=== PATIENT | male | born 1970 | race Two or more races ===

== ENCOUNTER 2017-07-26 08:44 | Emergency (ER) | payer OTHER ==
[2017-07-26 08:49] VITALS: BP 151/82; PULSE 68; RESP 17; TEMP 97.7; O2SAT 97
[2017-07-26] MEDS ORDERED: FLUORESCEIN SODIUM 1 MG STRIP OP ONE (08:58)
[2017-07-26] MEDS ORDERED: PROPARACAINE 0.5% 15 ML OPHT DROP ONE (08:59)
[2017-07-26] MEDS ORDERED: ERYTHROMYCIN 0.5% 1 GM OPHT.OINT LEFTEYE ONE (09:20)
--- NOTE | 2017-07-26 09:23 | EDPHY ---
H & P Stated Complaint: irritation l eye /noticed when he woke up Time Seen by Provider: 07/26/17 08:56 HPI/ROS: Chief Complaint: Left eye irritation HPI: 47-year-old male woke with irritation in his left eye this morning. Patient states he has been rubbing it. No blurry vision. Does wear glasses but no contacts. Denies any trauma or recent injuries. He does not work construction and has not been doing any grinding. No discharge. No headache. He is up-to-date on his tetanus. ROS: 10 point Review of Systems is negative except as noted in the HPI. Family History: non-contributory Physical Exam: General: Awake, alert, no acute distress Eye Exam Visual Acuity: Intact OU EOM: Intact OU Visual Quarles: Intact OU Pupil: Equal, round and reactive to light and accomodation OU External: Lids, lashes and margins normal OU, lids everted with no foreign body noted Slit Lamp; Normal Conjuctiva, Iris normal, Cornea normal, Anterior chambers clear without cells or flare, no hyphema, normal angles Fluorosceine exam: He has a large uptake in the 11 o'clock position over the iris consistent with corneal abrasion Skin: No rash - Personal History Current Tetanus/Diphtheria Vaccine: Yes - Medical/Surgical History Hx Asthma: No Hx Chronic Respiratory Disease: No Hx Diabetes: No Hx Cardiac Disease: No Hx Renal Disease: No Hx Cirrhosis: No Hx Alcoholism: No Hx HIV/AIDS: No Hx Splenectomy or Spleen Trauma: No Other PMH: gerd - Social History Smoking Status: Never smoked Constitutional: Initial Vital Signs Temperature (C) 36.5 C 07/26/17 08:47 Heart Rate 68 07/26/17 08:47 Respiratory Rate 17 07/26/17 08:47 Blood Pressure 151/82 H 07/26/17 08:47 O2 Sat (%) 97 07/26/17 08:47 O2 Delivery Mode Room Air Allergies/Adverse Reactions: No Known Allergies Allergy (Unverified 07/26/17 08:46) Home Medications: Medication Instructions Recorded Protonix 07/26/17 [id number] 07/26/17 Medical Decision Making ED Course/Re-evaluation: Patient has a corneal abrasion. Will start him on erythromycin eye ointment. Will also send him home with a 0.05% proparacaine solution for as an anesthetic. He will follow up with primary care physician. If he is still having eye pain or irritation in 2 days he also follow up with Ophthalmology. Departure - Departure Disposition: Home, Routine, Self-Care Clinical Impression: Corneal abrasion Condition: Good Instructions: Corneal Abrasion (ED) Additional Instructions: Apply the erythromycin ointment every 4 hr while awake for the next 2 days. You may apply the proparacaine, 0.05% drops, 1-2 drops every 30 min as needed for discomfort. Only do this for the next 24 hr, then discarded. You may also take ibuprofen as needed for discomfort. If in 2 days for still having eye pain or irritation follow up with Ophthalmology, otherwise follow up with your primary care physician as needed. Return to the emergency department for increasing severe eye pain, blurry vision , fevers, or any other concerns. Referrals: Ian Brown MD [Primary Care Provider] - As per Instructions Anika Diaz MD [Medical Doctor] - As per Instructions
== END 2017-07-26 09:40 | disposition home or self-care (01) ==
DX: S05.02XA Injury of conjunctiva and corneal abrasion without foreign body, left eye, initial encounter (principal); X58.XXXA Exposure to other specified factors, initial encounter

== ENCOUNTER → 2017-11-16 | Outpatient (CLI) | payer OTHER | LOC: FIMAGING 12:52 | PROVIDERS: ATTEND Family Medicine Sports Medicine | DX: M54.5 Low back pain (principal) ==